=== PATIENT | female | born 1955 | race Caucasian/White ===

== ENCOUNTER → 2024-06-15 | Day surgery (SDC) | payer MEDICARE, BC ==
[~2024-06-15] MED LIST: Acetaminophen 325 MG Tab PO PRN; Acetaminophen/Codeine 300-30 MG Tab PO PRN; Dexamethasone 4 MG/ML SDV IV ONE; Midazolam 1 MG/ML 2 ML SDV IV ONE; Ondansetron 4 MG/2 ML SDV IVPUSH PRN; Sodium Chloride 0.9% 10 ML Syringe IV ONE
[2024-06-15] MEDS: Sodium Chloride 0.9% 10 ML Syringe FLUSH PRN (10:04)
[2024-06-15] MEDS: Proparacaine 0.5% Ophth Soln 15 ML Bottle EYERT ONE ×2 (10:19→10:32)
[2024-06-15] MEDS: Moxifloxacin 0.5% Ophth Soln 3 ML Bottle EYERT ONE (10:20)
[2024-06-15] MEDS: Povidone-Iodine 5% Sterile Ophth Soln 30 ML Bottle EYELF ONE (10:21)
[2024-06-15] MEDS: Tropicamide 1% Ophth Soln 15 ML Bottle EYERT ONE (10:21)
[2024-06-15] MEDS: Timolol Maleate 0.5% Ophth Soln 5 ML Bottle EYERT ONE (10:22)
[2024-06-15] MEDS: Phenylephrine 10% Ophth Soln 5 ML Bot EYERT ONE (10:22)
[2024-06-15] MEDS: Cataract Ophth Solution EYERT ONE (10:23)
[2024-06-15] MEDS: Apraclonidine 0.5% Ophth Soln 5 ML Bot EYERT ONE (10:32)
[2024-06-15] MEDS: Diclofenac Sodium 0.1% Ophth Soln 5 ML Bottle EYERT ONE (10:32)
[2024-06-15] MEDS: Povidone-Iodine 5% Sterile Ophth Soln 30 ML Bottle EYERT ONE (10:32)
[2024-06-15] MEDS: Dexamethasone/Neomycin/Polymyxin B Ophth Oint 3.5 GM Tube EYERT ONE (10:40)
[2024-06-15] MEDS: Vancomycin 500 MG SDV EYERT ONE (10:41)
[2024-06-15] MEDS: Lidocaine 1% 30 ML SDV ONE (10:41)
[2024-06-15 11:16] VITALS: BP 143/78; PULSE 72
== END ==
LOC: DL.SDS 09:35
PROVIDERS: ATTEND Ophthalmology
DX: H25.811 Combined forms of age-related cataract, right eye (principal); I10 Essential (primary) hypertension; E66.9 Obesity, unspecified; G47.33 Obstructive sleep apnea (adult) (pediatric); Z79.899 Other long term (current) drug therapy; Z79.82 Long term (current) use of aspirin; Z88.0 Allergy status to penicillin; Z68.45 Body mass index [BMI] 70 or greater, adult
CPT/HCPCS: A9270-GY; J1100; J2250; J3370; J3490; V2632

== ENCOUNTER 2024-06-29 09:23 | Day surgery (SDC) | payer MEDICARE, BC ==
[2024-06-29] MEDS ORDERED: Sodium Chloride 0.9% 10 ML Syringe IV ONE (09:24)
[2024-06-29] MEDS ORDERED: Dexamethasone 4 MG/ML SDV IV ONE (09:24)
[2024-06-29] MEDS ORDERED: Midazolam 1 MG/ML 2 ML SDV IV ONE (09:24)
[2024-06-29] MEDS ORDERED: Acetaminophen 325 MG Tab PO PRN (09:45)
[2024-06-29] MEDS ORDERED: Acetaminophen/Codeine 300-30 MG Tab PO PRN (09:45)
[2024-06-29] MEDS ORDERED: Ondansetron 4 MG/2 ML SDV IVPUSH PRN (09:45)
[2024-06-29] MEDS: Proparacaine 0.5% Ophth Soln 15 ML Bottle EYELF ONE ×2 (09:53→10:59)
[2024-06-29] MEDS: Moxifloxacin 0.5% Ophth Soln 3 ML Bottle EYELF ONE (09:54)
[2024-06-29] MEDS: Tropicamide 1% Ophth Soln 15 ML Bottle EYELF ONE (09:54)
[2024-06-29] MEDS: Povidone-Iodine 5% Sterile Ophth Soln 30 ML Bottle EYELF ONE ×2 (09:54→11:00)
[2024-06-29] MEDS: Phenylephrine 10% Ophth Soln 5 ML Bot EYELF ONE (09:55)
[2024-06-29] MEDS: Cataract Ophth Solution EYELF ONE (09:56)
[2024-06-29] MEDS: Timolol Maleate 0.5% Ophth Soln 5 ML Bottle EYELF ONE (09:56)
[2024-06-29] MEDS: Sodium Chloride 0.9% 10 ML Syringe FLUSH PRN (09:57)
[2024-06-29] MEDS: Lidocaine 1% 30 ML SDV ONE (11:06)
[2024-06-29] MEDS: VANCOmycin 500 MG SDV EYELF ONE (11:07)
[2024-06-29] MEDS: Diclofenac Sodium 0.1% Ophth Soln 5 ML Bottle EYELF ONE (11:12)
[2024-06-29] MEDS: Apraclonidine 0.5% Ophth Soln 5 ML Bot EYELF ONE (11:12)
[2024-06-29] MEDS: Dexamethasone/Neomycin/Polymyxin B Ophth Oint 3.5 GM Tube EYELF ONE (11:13)
[2024-06-29 11:33] VITALS: BP 146/94; PULSE 67
== END 2024-06-29 11:35 | disposition home or self-care (01) ==
LOC: DL.SDS 09:23
PROVIDERS: ATTEND Ophthalmology
DX: H26.8 Other specified cataract (principal); I10 Essential (primary) hypertension; Z79.899 Other long term (current) drug therapy; Z88.0 Allergy status to penicillin
CPT/HCPCS: 66984; A9270; J3370; J1100; J2250; J3490

== ENCOUNTER 2024-11-11 16:04 | Emergency (ER) | payer MEDICARE, BC ==
[2024-11-11] MEDS ORDERED: Sodium Chloride 0.9% 10 ML Syringe FLUSH PRN (16:11)
[2024-11-11 16:22] LABS: BASOPHILS PERCENT AUTO 0.4 % (0.0-1.0); EOSINOPHILS PERCENT AUTO 2.7 % (1.0-3.0); HEMATOCRIT 48.8 % (37.0-47.0); HEMOGLOBIN 15.6 g/dL (12.0-16.0); LYMPHOCYTES PERCENT AUTO 25.7 % (20.5-50.1); MEAN CORPUSCULAR HEMOGLOBIN 31.8 pg (27.0-34.0); MEAN CORPUSCULAR VOLUME 99.6 fL (80-100); NEUTROPHILS PERCENT AUTO 60.2 % (42.2-75.2); PLATELET COUNT,PLT 177 10^3/uL (150-450); WHITE BLOOD CELL COUNT,WBC 9.1 10^3/uL (5.0-10.0)
[2024-11-11 16:45] LABS: A/G RATIO 0.9; ALANINE AMINOTRANSFERASE,ALT 32 U/L (14-59); ALBUMIN 3.6 g/dL (3.4-5.0); ALKALINE PHOSPHATASE 121 U/L (46-116); ANION GAP 14.6 mEq/L (7-13); ASPARTATE AMNIOTRANSFERASE,AST 29 U/L (15-37); BILIRUBIN TOTAL 0.8 mg/dL (0.2-1.0); BLOOD UREA NITROGEN,BUN 24 mg/dL (7-18); BUN/CREATININE RATIO 27.3 (No establ ref range); C-REACTIVE PROTEIN 0.82 ng/dL (<=0.50); CALCIUM 9.7 mg/dL (8.5-10.1); CARBON DIOXIDE,CO2 29 mmol/L (21-32); CHLORIDE,CL 105 mmol/L (98-107); CREATININE 0.88 mg/dL (0.55-1.02); GLUCOSE RANDOM 104 mg/dL (70-99); POTASSIUM,K 4.6 mmol/L (3.5-5.1); PROTEIN TOTAL,TP 7.5 g/dL (6.4-8.2); SODIUM,NA 144 mmol/L (136-145)
[2024-11-11 16:46] LABS: ESTIMATED GFR 72 mL/min (>=60)
[2024-11-11 18:27] VITALS: BP 124/86; PULSE 67
== END 2024-11-11 18:10 ==
LOC: DL.ED 16:04
DX: I44.2 Atrioventricular block, complete (principal); I48.91 Unspecified atrial fibrillation; E78.00 Pure hypercholesterolemia, unspecified; M19.90 Unspecified osteoarthritis, unspecified site; Z88.0 Allergy status to penicillin; Z79.899 Other long term (current) drug therapy; Z79.82 Long term (current) use of aspirin; Z86.16 Personal history of COVID-19; Z90.710 Acquired absence of both cervix and uterus
CPT/HCPCS: 36415; 70450; 80053; 83735; 84484; 85025; 86140; 93005; 93010; 99285